=== PATIENT | male | born 1940 | race Caucasian/White ===

== ENCOUNTER 2019-07-10 11:35 | Emergency (ER) | payer MEDICARE ==
[~2019-07-10] VITALS: Ht 172.7 cm; Wt 93.0 kg
[~2019-07-10 11:35] MED LIST: CLINDAMYCIN HC300 MG PO; OXYCONTIN10 MG PO; PERCOCET 5-3251 EACH PO
[2019-07-10] MEDS ORDERED: LISINOPRIL5 MG PO (11:45)
[2019-07-10] MEDS ORDERED: MEGESTROL ACETA20 MG PO (11:45)
[2019-07-10] MEDS ORDERED: OMEPRAZOLE20 MG PO (11:45)
[2019-07-10] MEDS ORDERED: FLUTICASONE PRO16 GM NAS (11:46)
[2019-07-10] MEDS ORDERED: METFORMIN HCL500 M1 PO (11:46)
[2019-07-10] MEDS ORDERED: OXYBUTYNIN CHLO10 MG PO (11:46)
[2019-07-10] MEDS ORDERED: TAMSULOSIN HCL0.4 MG PO (11:46)
[2019-07-10] MEDS ORDERED: DICYCLOMINE HCL20 MG PO (14:28)
== END 2019-07-10 14:42 | disposition home or self-care (01) ==
LOC: ED 11:35
DX: R10.32 Left lower quadrant pain (principal); E11.9 Type 2 diabetes mellitus without complications; Z87.891 Personal history of nicotine dependence; Z88.2 Allergy status to sulfonamides; Z79.899 Other long term (current) drug therapy; Z79.84 Long term (current) use of oral hypoglycemic drugs; Z85.46 Personal history of malignant neoplasm of prostate
CPT/HCPCS: 74177; 80053; 81001; 83605; 83690; 85025; 99284-25; Q9967